=== PATIENT | female | born 1975 | race Caucasian/White ===

== ENCOUNTER 2016-11-14 17:59 | Emergency (ER) | payer BC, OTHER ==
[2016-11-14 18:10] VITALS: RESP 16; TEMP 98.6
--- NOTE | 2016-11-14 18:50 | EDPHY ---
H & P Stated Complaint: PAIN L LATERAL RIB CAGE, DIARRHEA, NAUSEA Time Seen by Provider: 11/14/16 18:50 - Personal History LMP (Females 10-55): 1-7 Days Ago Current Tetanus Diphtheria and Acellular Pertussis (TDAP): Unsure - Medical/Surgical History Hx Asthma: No Hx Chronic Respiratory Disease: No Hx Diabetes: No Hx Cardiac Disease: No Hx Renal Disease: No Hx Cirrhosis: No Hx Alcoholism: No Hx HIV/AIDS: No Hx Splenectomy or Spleen Trauma: No Other PMH: PSH: CSECT X 2 - Social History Smoking Status: Never smoked Constitutional: Initial Vital Signs Temperature (C) 37 C 11/14/16 18:04 Heart Rate 87 11/14/16 18:04 Respiratory Rate 16 11/14/16 18:04 Blood Pressure 120/59 L 11/14/16 18:04 O2 Sat (%) 97 11/14/16 18:04 O2 Delivery Mode Room Air Allergies/Adverse Reactions: No Known Allergies Allergy (Unverified 11/14/16 18:07) Home Medications: Medication Instructions Recorded No Known Home Meds 11/14/16 Medical Decision Making - Diagnostics Imaging Results: Imaging Impressions Abdomen CT 11/14/16 18:58 Impression: 1. Benign-appearing hemangioma suspected within the liver. 2. No CT evidence of appendicitis, abscess or bowel obstruction. Findings discussed with Mehrdad Mathis MD at 20:18 hour, 11/14/2016. Imaging: Discussed imaging studies w/ cupboard builder Radiologist ED Course/Re-evaluation: CHIEF COMPLAINT: Flank and rib pain; multiple complaints HISTORY OF PRESENT ILLNESS: The patient is a 41 y/o female complaining of intermittent left flank and rib pain for the last few months becoming acute yesterday when lifting her child. She tried to treat her symptoms by doing a liquid fasting diet though the weekend without improvement. Yesterday she was holding her 2 y/o child up at the playground and developed acute, sharp, stabbing, and constant pain along her left lower ribs. She also states her "periods have not been right" for months in the setting of PCOS and she has had diarrhea for 6 months. She has not seen OBGYN or PCP for these symptoms as says she doesn't go to the doctor. REVIEW OF SYSTEMS: A 10 point review of systems was performed and is negative with the exception of the elements mentioned in the history of present illness. PHYSICAL EXAM: HR, BP, O2 Sat, RR. Temp noted General Appearance: Alert, well hydrated, appropriate, and non-toxic appearing. Head: Atraumatic without scalp tenderness or obvious injury Eyes: Pupils equal, round, reactive to light and accommodation, EOMI, no trauma , no injection. Ears: Clear bilaterally, no perforation, normal landmarks Nose: Atraumatic, no rhinorrhea, clear. Throat: Mucus membranes moist. Neck: Supple, nontender, no lymphadenopathy. Respiratory: No retractions, no distress, no wheezes, and no accessory muscle use. Lungs are clear to auscultation bilaterally. Cardiovascular: Regular rate and rhythm, no murmurs, rubs, or gallops. Good capillary refill all extremities. Gastrointestinal: Abdomen is soft, LUQ/lateral tenderness, non-distended, no masses, no rebound, no guarding, no peritoneal signs. Musculoskeletal: Tenderness to left lower lateral ribs. Normal active ROM of all extremities, atraumatic. Neurological: Alert, appropriate, and interactive. Nonfocal neuro exam. Skin: No rashes, good turgor, no nodules on palpation. Past medical history: PCOS Past surgical history: Cholecystectomy, x3 Family history: Heart disease, sister of lupus/bone marrow cancer Social history: DIAGNOSTICS/PROCEDURES/CRITICAL CARE TIME: Abdomen CT w/IV contrast: negative, incidental finding of liver hemangioma DIFFERENTIAL DIAGNOSIS: The differential diagnosis for the patient's abdominal pain included but was not limited to ovarian cyst, pelvic inflammatory disease, ovarian torsion, urinary tract infection, ectopic , cholecystitis, and appendicitis. MEDICAL DECISION MAKING: This is a 41 y/o female who presents with multiple long-term complaints, but chiefly complains of left lower rib pain that became acutely worse yesterday when lifting her child. Plan for IV, ISTAT, UA, 30mg IV Toradol, 4mg IV Zofran, 0.5mg IV Dilaudid, and abdominal CT. Patient declines pain and nausea medication. CT is negative for acute process. Reassessed patient and discussed findings. Recommended follow up with her PCP this week without fail. She agrees with treatment plan. Return precautions given. - Data Points Laboratory Results: Laboratory Results 11/14/16 18:40 11/14/16 18:40 11/14/16 11/14/1617 18:40 18:40 18:40 WBC RBC Hgb Hct MCV MCH MCHC RDW Plt Count MPV Neut % (Auto) Lymph % (Auto) Dale % (Auto) Eos % (Auto) Baso % (Auto) Nucleat RBC Rel Count Absolute Neuts (auto) Absolute Lymphs (auto) Absolute Monos (auto) Absolute Eos (auto) Absolute Basos (auto) Absolute Nucleated RBC Immature Gran % Immature Gran # Sodium 140 mEq/L mEq/L (134-144) Potassium 4.6 mEq/L mEq/L (3.5-5.2) Chloride 107 mEq/L mEq/L (97-110) Carbon Dioxide 20 mEq/l L mEq/l (22-31) Anion Gap 13 mEq/L mEq/L (8-16) BUN 9 mg/dL mg/dL (7-23) Creatinine 0.6 mg/dL mg/dL (0.6-1.0) Estimated GFR > 60 Glucose 93 mg/dL mg/dL (70-100) Calcium 9.6 mg/dL mg/dL (8.5-10.4) Total Bilirubin 0.7 mg/dL mg/dL (0.1-1.4) Conjugated Bilirubin 0.3 mg/dL mg/dL (0.0-0.5) Unconjugated Bilirubin 0.4 mg/dL mg/dL (0.0-1.1) AST 25 IU/L IU/L (14-46) ALT 34 IU/L IU/L (9-52) Alkaline Phosphatase 59 IU/L IU/L (38-126) Total Protein 7.6 g/dL g/dL (6.3-8.2) Albumin 4.6 g/dL g/dL (3.5-5.0) Lipase 90.0 IU/L IU/L (23-300) Beta HCG, Qual NEGATIVE Urine Color YELLOW Urine Appearance HAZY Urine pH 7.0 (5.0-7.5) Ur Specific [place] 1.018 (1.002-1.030) Urine Protein NEGATIVE (NEGATIVE) Urine Ketones NEGATIVE (NEGATIVE) Urine Blood NEGATIVE (NEGATIVE) Urine Nitrate NEGATIVE (NEGATIVE) Urine Bilirubin NEGATIVE (NEGATIVE) Urine Urobilinogen NEGATIVE EU EU (0.2-1.0) Ur Leukocyte Esterase NEGATIVE (NEGATIVE) Urine Glucose NEGATIVE (NEGATIVE) 11/14/16 18:40 WBC 8.16 10^3/uL 10^3/uL (3.80-9.50) RBC 4.71 10^6/uL 10^6/uL (4.18-5.33) Hgb 14.4 g/dL g/dL (12.6-16.3) Hct 42.7 % % (38.0-47.0) MCV 90.7 fL fL (81.5-99.8) MCH 30.6 pg pg (27.9-34.1) MCHC 33.7 g/dL g/dL (32.4-36.7) RDW 13.0 % % (11.5-15.2) Plt Count 254 10^3/uL 10^3/uL (150-400) MPV 10.2 fL fL (8.7-11.7) Neut % (Auto) 62.4 % % (39.3-74.2) Lymph % (Auto) 28.8 % % (15.0-45.0) Dale % (Auto) 6.0 % % (4.5-13.0) Eos % (Auto) 1.7 % % (0.6-7.6) Baso % (Auto) 0.7 % % (0.3-1.7) Nucleat RBC Rel Count 0.0 % % (0.0-0.2) Absolute Neuts (auto) 5.09 10^3/uL 10^3/uL (1.70-6.50) Absolute Lymphs (auto) 2.35 10^3/uL 10^3/uL (1.00-3.00) Absolute Monos (auto) 0.49 10^3/uL 10^3/uL (0.30-0.80) Absolute Eos (auto) 0.14 10^3/uL 10^3/uL (0.03-0.40) Absolute Basos (auto) 0.06 10^3/uL 10^3/uL (0.02-0.10) Absolute Nucleated RBC 0.00 10^3/uL 10^3/uL (0-0.01) Immature Gran % 0.4 % % (0.0-1.1) Immature Gran # 0.03 10^3/uL 10^3/uL (0.00-0.10) Sodium Potassium Chloride Carbon Dioxide Anion Gap BUN Creatinine Estimated GFR Glucose Calcium Total Bilirubin Conjugated Bilirubin Unconjugated Bilirubin AST ALT Alkaline Phosphatase Total Protein Albumin Lipase Beta HCG, Qual Urine Color Urine Appearance Urine pH Ur Specific [place] Urine Protein Urine Ketones Urine Blood Urine Nitrate Urine Bilirubin Urine Urobilinogen Ur Leukocyte Esterase Urine Glucose Medications Given: Discontinued Medications Hydromorphone HCl (Dilaudid) 0.5 mg IVP EDNOW ONE Stop: 11/14/16 18:59 Last Admin: 11/14/16 19:12 Dose: Not Given Sodium Chloride (Ns) 1,000 mls @ 0 mls/hr IV EDNOW ONE; Wide Open PRN Reason: Protocol Stop: 11/14/16 18:59 Last Admin: 11/14/16 19:13 Dose: Not Given Ketorolac Tromethamine (Toradol) 30 mg IVP EDNOW ONE Stop: 11/14/16 18:59 Last Admin: 11/14/16 19:13 Dose: Not Given Ondansetron HCl (Zofran) 4 mg IVP EDNOW ONE Stop: 11/14/16 18:59 Last Admin: 11/14/16 19:13 Dose: Not Given Departure - Departure Disposition: Home, Routine, Self-Care Clinical Impression: Rib pain on left side Condition: Good Instructions: Flank Pain (ED) Additional Instructions: Follow up with your primary care provider this week without fail. You've been referred to Dr. Madrid, featheredger and reducer machine, as well. Referrals: Ashish Fuller MD [Primary Care Provider] - As per Instructions Dhruv Madrid MD [Medical Doctor] - As per Instructions Report Scribed for: Mehrdad Mathis Report Scribed by: Ghazala Wilkerson Date of Report: 11/14/16 Time of Report: 19:16
[2016-11-14 18:56] LABS: % IMMATURE GRANULYOCYTES 0.4 % (0.0-1.1); ABSOLUTE IMMATURE GRANULOCYTES 0.03 10^3/uL (0.00-0.10); ADD DIFF? NO; ADD MORPH? NO; ADD SCAN? NO; ATYPICAL LYMPHOCYTE FLAG 0 (0-99); FRAGMENT RBC FLAG 0 (0-99); HEMATOCRIT 42.7 % (38.0-47.0); HEMOGLOBIN 14.4 g/dL (12.6-16.3); LEFT SHIFT FLG 0 (0-99); LIPEMIA HEMOLYSIS FLAG 80 (0-99); MEAN CELL HEMOGLOBIN 30.6 pg (27.9-34.1); MEAN CELL HEMOGLOBIN CONCENTR. 33.7 g/dL (32.4-36.7); MEAN CELL VOLUME 90.7 fL (81.5-99.8); MEAN PLATELET VOLUME 10.2 fL (8.7-11.7); PLATELET CLUMPS FLAG 10 (0-99); PLATELET COUNT 254 10^3/uL (150-400); RED BLOOD CELL COUNT 4.71 10^6/uL (4.18-5.33)
[2016-11-14] MEDS ORDERED: HYDROmorphONE/DILAUDID 1 MG/ML SYR IVP ONE (18:58)
[2016-11-14] MEDS ORDERED: NS 1,000 ML IV ONE (18:58)
[2016-11-14] MEDS ORDERED: KETOROLAC 30 MG/1 ML SDV IVP ONE (18:58)
[2016-11-14] MEDS ORDERED: ONDANSETRON 4 MG/2 ML VIAL IVP ONE (18:58)
[2016-11-14 19:02] LABS: COLOR YELLOW; LEUKOCYTE ESTERASE,URINE NEGATIVE (NEGATIVE); NITRITE,URINE NEGATIVE (NEGATIVE)
[2016-11-14 19:10] LABS: ALANINE AMINOTRANSFERASE 34 IU/L (9-52); ALBUMIN 4.6 g/dL (3.5-5.0); ALKALINE PHOSPHATASE 59 IU/L (38-126); ANION GAP 13 mEq/L (8-16); ASPARTATE AMINOTRANSFERASE 25 IU/L (14-46); BILIRUBIN,TOTAL 0.7 mg/dL (0.1-1.4); BILIRUBIN-CONJUGATED 0.3 mg/dL (0.0-0.5); BILIRUBIN-UNCONJUGATED 0.4 mg/dL (0.0-1.1); CALCIUM 9.6 mg/dL (8.5-10.4); CARBON DIOXIDE 20 mEq/l (22-31); CHLORIDE 107 mEq/L (97-110); CREATININE 0.6 mg/dL (0.6-1.0); GLOMERULAR FILTRATION RATE > 60; GLUCOSE 93 mg/dL (70-100); POTASSIUM 4.6 mEq/L (3.5-5.2); SODIUM 140 mEq/L (134-144); TOTAL PROTEIN 7.6 g/dL (6.3-8.2)
[2016-11-14] MEDS ORDERED: IOPAMIDOL (ISOVUE-300) 100 ML BTL ONE (19:21)
[2016-11-14] MEDS ORDERED: HYDROCOD/APAP 5/325 PREPACK#6 BTL TAKEHOME ONE (20:28)
[2016-11-14 20:57] VITALS: BP 116/77; PULSE 85; O2SAT 95
== END 2016-11-14 20:56 | disposition home or self-care (01) ==
DX: R07.81 Pleurodynia (principal)
CPT/HCPCS: Q9967

== ENCOUNTER 2017-04-30 20:10 | Emergency (ER) | payer BC ==
[2017-04-30 20:20] VITALS: TEMP 98.2
--- NOTE | 2017-04-30 21:13 | EDPHY ---
H & P Smoking Status: Never smoked Time Seen by Provider: 04/30/17 21:12 HPI/ROS: Chief complaint. Abdominal pain HPI. 41-year-old female presents emergency department left upper quadrant pain for the past 4-5 days. It is worsening. Pain is worse with drinking cold drinks as well as eating [employer]. It throbs when she does this. Otherwise the pain is constant. She says it is similar to when she had her gallbladder symptoms. Nausea and vomiting last evening. No diarrhea. 2 days ago the pain radiate up into her chest but since. Otherwise she has no chest pain or shortness of breath. Currently having her menstrual. She has had similar left upper quadrant symptoms previously. Chills but no fever. No urinary symptoms. ROS Constitutional. no fever/chills, no weakness Eyes. no problems with vision ENT. no sore throat, no nasal drainage Cardiovascular. no chest pain Respiratory. no shortness of breath, no cough Abdominal. Left upper quadrant abdominal pain with nausea vomiting . no problems urinating MS. no calf pain/swelling, no neck/back pain, no joint pain Skin. no rash Lymph. no swollen glands Neuro. no headache, no dizziness, no difficulty walking or with speech (Last [place]) Past Medical/Surgical History: Polycystic ovarian syndrome, cholecystectomy, (Last [place]) Social History: , nonsmoker, no alcohol (Last [place]) Physical Exam: General Appearance: Alert well-developed female moderate distress vital signs stable Eyes: Pupils equal and round no pallor or injection. ENT, Mouth: Mucous membranes are moist. Respiratory: There are no retractions, lungs are clear to auscultation. Cardiovascular: Regular rate and rhythm. Gastrointestinal: Abdomen is soft with left upper quadrant tenderness. No masses. Normal bowel sounds Neurological: Awake and alert, sensory and motor exams grossly normal. Skin: Warm and dry, no rashes. Musculoskeletal: Neck is supple nontender. Extremities symmetrical, full range of motion. Psychiatric: Patient is oriented X 3, there is no agitation. (Last [place]) Constitutional: Initial Vital Signs Temperature (C) 36.8 C 04/30/17 20:18 Heart Rate 87 04/30/17 20:18 Respiratory Rate 18 04/30/17 20:18 Blood Pressure 131/112 H 04/30/17 20:18 O2 Sat (%) 98 04/30/17 20:18 O2 Delivery Mode Room Air Allergies/Adverse Reactions: No Known Allergies Allergy (Unverified 11/14/16 18:07) Home Medications: Medication Instructions Recorded No Known Home Meds 11/14/16 Ondansetron HCl [Zofran] 4 mg PO Q4-6PRN PRN #10 tablet 04/30/17 Ranitidine HCl [Zantac] 150 mg PO DAILY #30 tablet 04/30/17 Medical Decision Making - Diagnostics Imaging Results: Imaging Impressions Abdomen CT 04/30/17 21:26 Impression: 1. No source for left upper quadrant pain identified. No evidence of obstruction in this postcholecystectomy patient. 2. 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 This is likely incidental. Results called and discussed with James Larios MD at 04/30/2017 22:50 General information for patients regarding this examination can be found at [email or web address] Vo[employer]. If you have questions or comments about this report, please contact me at (hospital) or [phone] (cell). Procedures: IV normal saline. Patient declines pain medication (Last [place]) ED Course/Re-evaluation: 2259: Patient was signed over to me at 10:00 p.m. shift change. Patient is pending a CT scan abdomen pelvis. The CT scan abdomen pelvis with IV contrast called to me by Dr. Gonzalez does not show any acute inflammatory process or anything to explain the left upper quadrant abdominal pain. Patient reports to me no chest pain or shortness of breath denies pleuritic pain. I did go see and evaluate the patient as well. She has focal tenderness in the left upper quadrant. Additionally she reports that the pain gets worse after she drinks cold substances. It is possible this is peptic ulcer disease versus gastritis. I do recommend the patient stays on antacid medication follows up with GI. Additionally went over return precautions with her she understands return emergency room she develops worsening abdominal pain fever vomiting. Zofran prescribed. As well as Zantac. Return precautions discussed. Blood work reviewed and CT reviewed as well. ( Vipul Mendoza) - Data Points Laboratory Results: Laboratory Results 04/30/17 21:50 04/30/17 21:50 04/30/17 04/30/17 04/30/17 21:50 21:50 21:45 WBC 8.49 10^3/uL 10^3/uL (3.80-9.50) RBC 4.81 10^6/uL 10^6/uL (4.18-5.33) Hgb 15.0 g/dL g/dL (12.6-16.3) Hct 43.6 % % (38.0-47.0) MCV 90.6 fL fL (81.5-99.8) MCH 31.2 pg pg (27.9-34.1) MCHC 34.4 g/dL g/dL (32.4-36.7) RDW 13.2 % % (11.5-15.2) Plt Count 297 10^3/uL 10^3/uL (150-400) MPV 9.9 fL fL (8.7-11.7) Neut % (Auto) 61.2 % % (39.3-74.2) Lymph % (Auto) 28.4 % % (15.0-45.0) [place] % (Auto) 6.5 % % (4.5-13.0) Eos % (Auto) 2.9 % % (0.6-7.6) Baso % (Auto) 0.6 % % (0.3-1.7) Nucleat RBC Rel Count 0.0 % % (0.0-0.2) Absolute Neuts (auto) 5.20 10^3/uL 10^3/uL (1.70-6.50) Absolute Lymphs (auto) 2.41 10^3/uL 10^3/uL (1.00-3.00) Absolute Monos (auto) 0.55 10^3/uL 10^3/uL (0.30-0.80) Absolute Eos (auto) 0.25 10^3/uL 10^3/uL (0.03-0.40) Absolute Basos (auto) 0.05 10^3/uL 10^3/uL (0.02-0.10) Absolute Nucleated RBC 0.00 10^3/uL 10^3/uL (0-0.01) Immature Gran % 0.4 % % (0.0-1.1) Immature Gran # 0.03 10^3/uL 10^3/uL (0.00-0.10) Sodium 140 mEq/L mEq/L (135-145) Potassium 3.8 mEq/L mEq/L (3.5-5.2) Chloride 101 mEq/L mEq/L (97-110) Carbon Dioxide 25 mEq/l mEq/l (22-31) Anion Gap 14 mEq/L mEq/L (8-16) BUN 9 mg/dL mg/dL (7-23) Creatinine 0.7 mg/dL mg/dL (0.6-1.0) Estimated GFR > 60 Glucose 89 mg/dL mg/dL (70-100) Calcium 9.7 mg/dL mg/dL (8.5-10.4) Lipase 168 IU/L IU/L (23-300) Urine Color YELLOW Urine Appearance CLEAR Urine pH 5.0 (5.0-7.5) Ur Specific [place] 1.012 (1.002-1.030) Urine Protein NEGATIVE (NEGATIVE) Urine Ketones NEGATIVE (NEGATIVE) Urine Blood 2+ H (NEGATIVE) Urine Nitrate NEGATIVE (NEGATIVE) Urine Bilirubin NEGATIVE (NEGATIVE) Urine Urobilinogen NEGATIVE EU EU (0.2-1.0) Ur Leukocyte Esterase NEGATIVE (NEGATIVE) Urine RBC 3-5 /hpf H /hpf (0-3) Urine WBC NONE SEEN /hpf /hpf (0-3) Ur Epithelial Cells TRACE /lpf /lpf (NONE-1+) Urine Mucus TRACE /lpf /lpf (NONE-1+) Urine Glucose NEGATIVE (NEGATIVE) Medications Given: Discontinued Medications Sodium Chloride (Ns) 1,000 mls @ 0 mls/hr IV EDNOW ONE; Wide Open PRN Reason: Protocol Stop: 04/30/17 21:27 Last Admin: 04/30/17 21:52 Dose: 1,000 mls Departure - Departure Disposition: Home, Routine, Self-Care Clinical Impression: Abdominal pain Qualifiers: Abdominal location: unspecified location Qualified Code(s): R10.9 - Unspecified abdominal pain Condition: Good Instructions: Acute Abdominal Pain (ED) Additional Instructions: 1. Wayne diet next 24 to 48 hours 2. No spicy fatty greasy foods. 3. Zofran and Zantac as prescribed. 4. Follow-up with GI. Call for an appointment. 5. Return emergency room if there is worsening symptoms includes worsening abdominal pain fever vomiting. Referrals: Ashish Fuller MD [Primary Care Provider] - As per Instructions Carley Huynh MD [Medical Doctor] - As per Instructions Prescriptions: Ondansetron HCl [Zofran] 4 mg PO Q4-6PRN PRN #10 tablet PRN Reason: Nausea/Vomiting, Use 1st Ranitidine HCl [Zantac] 150 mg PO DAILY #30 tablet
[2017-04-30] MEDS ORDERED: NS 1,000 ML IV ONE (21:26)
[2017-04-30 22:14] LABS: PLATELET COUNT 297 10^3/uL (150-400)
[2017-04-30] MEDS ORDERED: IOPAMIDOL (ISOVUE-300) 100 ML BTL ONE (22:19)
[2017-04-30 23:15] VITALS: BP 121/81; PULSE 84; RESP 16; O2SAT 96
== END 2017-04-30 23:24 | disposition home or self-care (01) ==
DX: R10.12 Left upper quadrant pain (principal); E86.9 Volume depletion, unspecified; Z90.49 Acquired absence of other specified parts of digestive tract
CPT/HCPCS: Q9967